=== PATIENT | male | born 1965 | race Caucasian/White ===

== ENCOUNTER 2023-10-03 08:00 | Day surgery (SDC) | payer OTHER ==
[~2023-10-03] VITALS: Ht 165.1 cm; Wt 108.9 kg
[2023-10-03] MEDS ORDERED: fentaNYL citrate 0.05 MG/ML VIAL ONE (08:45)
[2023-10-03] MEDS ORDERED: LIDOCAINE 2% 100 MG/5 ML UJET TP ONE (08:46)
[2023-10-03] MEDS: fentaNYL citrate 0.05 MG/ML VIAL IVP ONE (08:55)
== END 2023-10-03 09:56 | disposition home or self-care (01) ==
LOC: MDS 08:00 → MMU 08:05 → MDS 09:56
PROVIDERS: ATTEND Internal Medicine Gastroenterology
DX: Z12.11 Encounter for screening for malignant neoplasm of colon (principal); I10 Essential (primary) hypertension; E11.9 Type 2 diabetes mellitus without complications; Z98.890 Other specified postprocedural states
CPT/HCPCS: 45378; 82948; J3010